=== PATIENT | female | born 1945 | race Caucasian/White ===

== ENCOUNTER 2019-06-07 13:47 | Emergency (ER) | payer MEDICARE ==
[~2019-06-07] VITALS: Ht 160 cm; Wt 80.0 kg
[2019-06-07] MEDS ORDERED: ONDA8TAB13 PO (15:38)
[2019-06-07] MEDS ORDERED: CYCL-1 PO (15:38)
[2019-06-07] MEDS ORDERED: PANT-47 PO (15:38)
[2019-06-07] MEDS ORDERED: ondansetron 4mg rapidly disintigrating tab PO ONE (15:40)
[2019-06-07] MEDS ORDERED: ibuprofen tablet 400 MG TABLET PO ONE (15:40)
[2019-06-07 16:07] VITALS: BP 150/93
== END 2019-06-07 16:10 | disposition home or self-care (01) ==
LOC: ER 13:48
DX: S29.012A Strain of muscle and tendon of back wall of thorax, initial encounter (principal); Z88.8 Allergy status to other drugs, medicaments and biological substances; Z79.899 Other long term (current) drug therapy; X50.9XXA Other and unspecified overexertion or strenuous movements or postures, initial encounter; Y93.89 Activity, other specified; Y92.89 Other specified places as the place of occurrence of the external cause; Y99.8 Other external cause status
CPT/HCPCS: 99284

== ENCOUNTER 2019-07-20 10:56 | Emergency (ER) | payer MEDICARE ==
[~2019-07-20] VITALS: Ht 160 cm; Wt 69.8 kg
[~2019-07-20 10:56] MED LIST: CYCL-1 PO; ONDA8TAB13 PO; PANT-47 PO
--- NOTE | 2019-07-20 11:24 | NUR ---
PT GIVEN ICE PACK FOR NECK
[2019-07-20] MEDS ORDERED: CYCL-1 PO (13:05)
[2019-07-20 13:34] VITALS: BP 120/81
== END 2019-07-20 13:35 | disposition home or self-care (01) ==
LOC: ER 10:56
DX: S16.1XXA Strain of muscle, fascia and tendon at neck level, initial encounter (principal); G44.209 Tension-type headache, unspecified, not intractable; Z79.899 Other long term (current) drug therapy; Z88.8 Allergy status to other drugs, medicaments and biological substances; W18.39XA Other fall on same level, initial encounter; Y93.89 Activity, other specified; Y92.89 Other specified places as the place of occurrence of the external cause; Y99.8 Other external cause status
CPT/HCPCS: 70450; 72125; 99284